=== PATIENT | male | born 1935 | race Caucasian/White ===

== ENCOUNTER 2017-03-28 20:29 | Emergency (ER) | payer MEDICARE, BC ==
[2017-03-28] MEDS ORDERED: HYDROmorphone 1 MG/ML Syringe IVPUSH ONE (20:53)
[2017-03-28] MEDS ORDERED: Sodium Chloride 0.9% 10 ML Syringe FLUSH PRN (20:53)
[2017-03-28] MEDS ORDERED: Diazepam 5 MG Tab PO ONE (20:53)
--- NOTE | 2017-03-28 20:59 | EDM.PDOC ---
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 He has had thorough workups for this including [address] [facility]. He's been on chronic Mirapex and clonazepam, and recently started oxycodone which had been helping but he was recently diagnosed with influenza and tonight he is having a particularly bad night with the recurring spasms especially in the right shoulder. No new trauma, no fevers or chills, no nausea or vomiting. He admits he does not have a whole day where he goes by without at least some spasms. They feel like an electric shock. Onset: Unknown/Unsure (Symptoms have been chronic for years) Quality: Reports: Sharp Severity: Moderate Associated Symptoms: Reports: No Other Symptoms Left Arm Pain Score (Numeric/FACES): 8 - Related Data Allergies Allergy/AdvReac Type Severity Reaction Status Date / Time nifedipine [From Procardia] Allergy Irritabilit Verified 03/28/17 20:48 y Sulfa (Sulfonamide Allergy Irritabilit Verified 03/28/17 20:48 Antibiotics) y Home Meds: Home Meds Acetaminophen [Tylenol] 325 mg PO Q4H PRN 05/20/13 [History] Aspirin [Children's Aspirin] 81 mg PO DAILY 09/11/13 [History] Carvedilol [Coreg] 50 mg PO BID 09/11/13 [History] Furosemide [Lasix] 40 mg PO DAILY 09/11/13 [History] Melatonin 5 mg PO BEDTIME 09/11/13 [History] Pramipexole [Mirapex] 0.5 mg PO BID 09/11/13 [History] Saw [place] Fruit [Saw [place]] 450 mg PO DAILY 09/11/13 [History] Sildenafil [Viagra] 100 mg PO DAILY PRN 09/11/13 [History] Ubidecarenone [Coenzyme Q10] 100 gm MC DAILY 09/11/13 [History] Warfarin [Coumadin] 7.5 mg PO DAILY 09/11/13 [History] oxyCODONE HCl [Oxycontin] 10 mg PO Q4HR PRN 09/11/13 [History] Calcium Citrate/Vitamin D3 [Calcium Citrate + D] 1 each PO DAILY 03/28/17 [ History] Folic Acid 1 mg PO DAILY 03/28/17 [History] Lisinopril [Zestril] 2.5 mg PO DAILY 03/28/17 [History] Methotrexate 12.5 mg PO ASDIRECTED 03/28/17 [History] Simvastatin 20 mg PO BEDTIME 03/28/17 [History] clonazePAM [Klonopin] 1 mg PO BEDTIME 03/28/17 [History] ED ROS GENERAL - Review of Systems Review Of Systems: See Below Constitutional: Denies: Fever, Chills Respiratory: Reports: Cough (Recent influenza diagnosis but improving) GI/Abdominal: Denies: Nausea, Vomiting Skin: Reports: No Symptoms Neurological: Denies: Headache ED EXAM, NEURO - Physical Exam Exam: See Below Exam Limited By: No Limitations General Appearance: Alert, Mild Distress (Patient appears comfortable between episodes but every 30 seconds to 60 seconds he has a sudden brief spasm and pain to the right shoulder causing a muscle contraction) Respiratory/Chest: No Respiratory Distress Neurological: Alert, Oriented x 3 Psychiatric: Flat Affect Skin Exam: Warm, Dry Course - Vital Signs Last Recorded V/S: Last Vital Signs Temp 99.0 F 03/28/17 20:38 Pulse 64 03/28/17 20:38 Resp 12 03/28/17 20:38 BP 140/60 03/28/17 20:38 Pulse Ox 94 L 03/28/17 20:38 - Orders/Labs/Meds Orders: Active Orders 24 hr Category Date Time Status Saline Lock Insert [OM.PC] Routine Oth 03/28/17 20:53 Ordered Meds: Medications Discontinued Medications Generic Name Dose Route Start Last Admin Trade Name Freq PRN Reason Stop Dose Admin Diazepam 10 mg 03/28/17 20:53 03/28/17 21:01 Valium. PO 03/28/17 20:54 10 mg ONETIME ONE Administration Hydromorphone HCl 1 mg 03/28/17 20:53 03/28/17 21:04 Dilaudid IVPUSH 03/28/17 20:54 1 mg ONETIME ONE Administration Sodium Chloride 10 ml 03/28/17 20:53 03/28/17 21:04 Saline Flush FLUSH 10 ml ASDIRECTED PRN Administration Keep Vein Open - Re-Assessments/Exams Free Text/Narrative Re-Assessment/Exam: 03/28/17 20:57 An IV was started and the patient was given 1 mg of IV Dilaudid, and 10 mg of oral Valium to take when he gets home. His main goal for coming into the emergency room was to get some relief so he could sleep. Departure - Departure Time of Disposition: 21:49 Disposition: Home, Self-Care 01 Condition: Fair Clinical Impression: Neuropathy, Muscle spasm of right shoulder - Discharge Information Instructions: Neuropathic Pain Referrals: Aung Tsang MD [Primary Care Provider] - Forms: ED Department Discharge Care Plan Goals: Continue your current medications, and discuss Lyrica as a possible treatment with your regular physicians.. Recheck tomorrow if not improving satisfactorily. - My Orders Last 24 Hours: My Active Orders 03/28/17 20:53 Saline Lock Insert [OM.PC] Routine - Assessment/Plan Last 24 Hours: My Active Orders 03/28/17 20:53 Saline Lock Insert [OM.PC] Routine
== END 2017-03-28 21:28 | disposition home or self-care (01) ==
LOC: JP.ED 20:29
DX: M62.838 Other muscle spasm (principal); G62.9 Polyneuropathy, unspecified; Z88.2 Allergy status to sulfonamides; Z88.8 Allergy status to other drugs, medicaments and biological substances; Z79.82 Long term (current) use of aspirin; Z79.899 Other long term (current) drug therapy; Z79.01 Long term (current) use of anticoagulants
CPT/HCPCS: 96374; 99284; A9270; J1170; J7050; 99283

== ENCOUNTER 2017-04-05 09:37 | Emergency (ER) | payer MEDICARE, BC ==
[2017-04-05] MEDS ORDERED: HYDROmorphone 1 MG/ML Syringe IVPUSH ONE (10:58)
[2017-04-05] MEDS ORDERED: Sodium Chloride 0.9% 10 ML Syringe FLUSH PRN (10:58)
--- NOTE | 2017-04-05 11:05 | EDM.PDOC ---
ED HPI GENERAL MEDICAL PROBLEM - General Chief Complaint: General Stated Complaint: PAIN IN RIGHT LEG Time Seen by Provider: 04/05/17 10:45 Source of Information: Reports: Patient, Family History Limitations: Reports: No Limitations - History of Present Illness INITIAL COMMENTS - FREE TEXT/NARRATIVE: 81-year-old male with chronic intense spasms of the extremities, I saw him 2 weeks ago and he responded well to IV Dilaudid and IV Valium. He has an appointment with neurological movement disorders at [facility]. The appointment is next month. He did not get any sleep last night because the spasm was persistent and recurring in the right leg and some in the right arm. Onset: Other (Symptoms have been ongoing for years) Severity: Moderate Associated Symptoms: Reports: Other (Patient is becoming very fatigued because of the prolonged symptoms and lack of sleep) - Related Data Allergies Allergy/AdvReac Type Severity Reaction Status Date / Time nifedipine [From Procardia] Allergy Irritabilit Verified 03/28/17 20:48 y Sulfa (Sulfonamide Allergy Irritabilit Verified 03/28/17 20:48 Antibiotics) y Home Meds: Home Meds Acetaminophen [Tylenol] 325 mg PO Q4H PRN 05/20/13 [History] Aspirin [Children's Aspirin] 81 mg PO DAILY 09/11/13 [History] Carvedilol [Coreg] 50 mg PO BID 09/11/13 [History] Furosemide [Lasix] 40 mg PO DAILY 09/11/13 [History] Melatonin 5 mg PO BEDTIME 09/11/13 [History] Pramipexole [Mirapex] 0.5 mg PO BID 09/11/13 [History] Saw [place] Fruit [Saw [place]] 450 mg PO DAILY 09/11/13 [History] Sildenafil [Viagra] 100 mg PO DAILY PRN 09/11/13 [History] Ubidecarenone [Coenzyme Q10] 100 gm MC DAILY 09/11/13 [History] Warfarin [Coumadin] 7.5 mg PO DAILY 09/11/13 [History] oxyCODONE HCl [Oxycontin] 10 mg PO Q4HR PRN 09/11/13 [History] Calcium Citrate/Vitamin D3 [Calcium Citrate + D] 1 each PO DAILY 03/28/17 [ History] Folic Acid 1 mg PO DAILY 03/28/17 [History] Lisinopril [Zestril] 2.5 mg PO DAILY 03/28/17 [History] Methotrexate 12.5 mg PO ASDIRECTED 03/28/17 [History] Simvastatin 20 mg PO BEDTIME 03/28/17 [History] clonazePAM [Klonopin] 1 mg PO BEDTIME 03/28/17 [History] Past Medical History Cardiovascular History: Reports: Hypertension, [place] Musculoskeletal History: Reports: Osteoarthritis, Other (See Below) Other Musculoskeletal History: c/o spasm R knee L elbow Neurological History: Reports: Other (See Below) Other Neuro History: spasms legs Oncologic (Cancer) History: Reports: Other (See Below) Other Oncologic History: hx skin ca - Past Surgical History Cardiovascular Surgical History: Reports: Pacer Social & Family History - Tobacco Use Smoking Status *Q: Never Smoker Years of Tobacco use: 50 Packs/Tins Daily: 2 Used Tobacco, but Quit: No Second Hand Smoke Exposure: No - Caffeine Use Caffeine Use: Reports: Coffee - Alcohol Use Days Per Week of Alcohol Use: 1 Number of Drinks Per Day: 7 Total Drinks Per Week: 7 - Recreational Drug Use Recreational Drug Use: No ED ROS GENERAL - Review of Systems Review Of Systems: See Below Constitutional: Reports: Malaise. Denies: Fever, Chills HEENT: Reports: No Symptoms Respiratory: Denies: Shortness of Breath, Cough Cardiovascular: Denies: Chest Pain GI/Abdominal: Denies: Nausea, Vomiting Skin: Denies: Rash ED EXAM, GENERAL - Physical Exam Exam: See Below Exam Limited By: No Limitations General Appearance: Alert, Mild Distress (Patient is very uncomfortable from the frequent recurring spasms) Respiratory/Chest: No Respiratory Distress Cardiovascular: Regular Rate, Rhythm Extremities: Non-Tender (No tenderness to palpation of the shoulder or leg, but recurring spasms are occurring) Neurological: Alert, Oriented Course - Vital Signs Last Recorded V/S: Last Vital Signs Temp 96.8 F 04/05/17 10:17 Pulse 91 04/05/17 10:17 Resp 18 04/05/17 10:17 BP 137/59 L 04/05/17 10:17 Pulse Ox 95 04/05/17 09:55 - Orders/Labs/Meds Orders: Active Orders 24 hr Category Date Time Status Saline Lock Insert [OM.PC] Routine Oth 04/05/17 10:58 Ordered Meds: Medications Discontinued Medications Generic Name Dose Route Start Last Admin Trade Name Jt PRN Reason Stop Dose Admin Diazepam 10 mg 04/05/17 10:58 04/05/17 11:29 Valium IVPUSH 04/05/17 10:59 Not Given ONETIME ONE Hydromorphone HCl 1 mg 04/05/17 10:58 04/05/17 11:20 Dilaudid IVPUSH 04/05/17 10:59 1 mg ONETIME ONE Administration Lorazepam Confirm 04/05/17 11:27 04/05/17 11:38 Ativan Administered 04/05/17 11:28 Not Given Dose 2 mg .ROUTE .STK-MED ONE Lorazepam 1 mg 04/05/17 11:34 04/05/17 11:37 Ativan IVPUSH 04/05/17 11:35 1 mg ONETIME ONE Administration Sodium Chloride 10 ml 04/05/17 10:58 Saline Flush FLUSH ASDIRECTED PRN Keep Vein Open - Re-Assessments/Exams Free Text/Narrative Re-Assessment/Exam: 04/05/17 11:04 Saline lock was started and the patient again was given 1 mg of Dilaudid and 10 mg of IV Valium. He was given a prescription for oral Valium 10 mg #30 to use instead of the clonazepam. 04/05/17 11:35 No IV Valium was available so the patient was given 1 mg of Ativan IV Departure - Departure Time of Disposition: 11:40 Disposition: Home, Self-Care 01 Condition: Good Clinical Impression: Muscle spasm of right shoulder, Muscle spasm of right lower extremity - Discharge Information Instructions: Muscle Cramps and Spasms, [id number] Referrals: Aung Tsang MD [Primary Care Provider] - Forms: ED Department Discharge Care Plan Goals: Continue your current medications except take Valium instead of clonazepam. Return if worsening despite medication change. - My Orders Last 24 Hours: My Active Orders 04/05/17 10:58 Saline Lock Insert [OM.PC] Routine - Assessment/Plan Last 24 Hours: My Active Orders 04/05/17 10:58 Saline Lock Insert [OM.PC] Routine
[2017-04-05] MEDS ORDERED: LORazepam 2 MG/ML MDV ONE (11:27)
[2017-04-05] MEDS ORDERED: LORazepam 2 MG/ML MDV IVPUSH ONE (11:34)
== END 2017-04-05 11:42 | disposition home or self-care (01) ==
LOC: JP.ED 09:37
DX: M62.838 Other muscle spasm (principal); I10 Essential (primary) hypertension; Z79.01 Long term (current) use of anticoagulants; Z79.899 Other long term (current) drug therapy; Z79.82 Long term (current) use of aspirin; Z88.2 Allergy status to sulfonamides; Z88.8 Allergy status to other drugs, medicaments and biological substances
CPT/HCPCS: 96374; 96375; 99283; J1170; J2060

== ENCOUNTER 2017-04-06 02:03 | Emergency (ER) | payer MEDICARE, BC ==
[2017-04-06] MEDS ORDERED: HYDROmorphone 1 MG/ML Syringe IM ONE (03:04)
--- NOTE | 2017-04-06 03:10 | EDM.PDOC ---
ED HPI GENERAL MEDICAL PROBLEM - General Chief Complaint: Neurological Problem Stated Complaint: BODY PAINS Time Seen by Provider: 04/06/17 02:50 Source of Information: Reports: Patient, Family, Old Records History Limitations: Reports: No Limitations - History of Present Illness INITIAL COMMENTS - FREE TEXT/NARRATIVE: 81 yo male presents with the same problem has had ongoing for a long time, this problem of just jerking/electrical shock-like feelings in his extremities has been worsening over the past couple of weeks. He was last here yesterday morning and got some transient relief with 1 mg IV Dilaudid with some IV Diazepam, although not as much relief as he received the previous visit with the same dose. He has an appt with his primary this coming Monday and an appt at the [facility] next month with a specialist there in muscular disorders. 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.) Associated Symptoms: Reports: No Other Symptoms Treatments CONICAL MIXER: Reports: Other (see below) (home meds) - Related Data Allergies Allergy/AdvReac Type Severity Reaction Status Date / Time nifedipine [From Procardia] Allergy Irritabilit Verified 03/28/17 20:48 y Sulfa (Sulfonamide Allergy Irritabilit Verified 03/28/17 20:48 Antibiotics) y Home Meds: Home Meds Acetaminophen [Tylenol] 325 mg PO Q4H PRN 05/20/13 [History] Aspirin [Children's Aspirin] 81 mg PO DAILY 09/11/13 [History] Carvedilol [Coreg] 50 mg PO BID 09/11/13 [History] Melatonin 5 mg PO BEDTIME 09/11/13 [History] Pramipexole [Mirapex] 0.5 mg PO BID 09/11/13 [History] Saw [place] Fruit [Saw [place]] 450 mg PO DAILY 09/11/13 [History] Ubidecarenone [Coenzyme Q10] 100 gm MC DAILY 07/16/14 [History] Warfarin [Coumadin] 7.5 mg PO DAILY 09/11/13 [History] oxyCODONE HCl [Oxycontin] 10 mg PO Q4HR PRN 09/11/13 [History] Calcium Citrate/Vitamin D3 [Calcium Citrate + D] 1 each PO DAILY 03/28/17 [ History] Folic Acid 1 mg PO DAILY 03/28/17 [History] Lisinopril [Zestril] 2.5 mg PO DAILY 03/28/17 [History] Methotrexate 12.5 mg PO ASDIRECTED 03/28/17 [History] clonazePAM [Klonopin] 1 mg PO BEDTIME 03/28/17 [History] Diazepam [Valium] 10 mg PO Q4H 04/06/17 [History] Past Medical History HEENT History: Reports: Impaired Vision Cardiovascular History: Reports: Heart Failure, Hypertension, [place] Musculoskeletal History: Reports: Osteoarthritis, Other (See Below) Other Musculoskeletal History: c/o spasm R knee L elbow Neurological History: Reports: CVA, Other (See Below) Other Neuro History: spasms legs Psychiatric History: Reports: Depression Oncologic (Cancer) History: Reports: Other (See Below) Other Oncologic History: hx skin ca - Infectious Disease History Infectious Disease History: Reports: Chicken Pox, Measles, Mumps - Past Surgical History Cardiovascular Surgical History: Reports: Pacer GI Surgical History: Reports: Hernia, Inguinal Musculoskeletal Surgical History: Reports: Knee Replacement Social & Family History - Family History Family Medical History: Noncontributory - Tobacco Use Smoking Status *Q: Current Every Day Smoker Years of Tobacco use: 60 Packs/Tins Daily: 1 Used Tobacco, but Quit: No Second Hand Smoke Exposure: No - Caffeine Use Caffeine Use: Reports: Coffee - Alcohol Use Days Per Week of Alcohol Use: 7 Number of Drinks Per Day: 1 Total Drinks Per Week: 7 - Recreational Drug Use Recreational Drug Use: No ED ROS GENERAL - Review of Systems Review Of Systems: See Below Constitutional: Reports: No Symptoms HEENT: Reports: No Symptoms Respiratory: Reports: No Symptoms Cardiovascular: Reports: No Symptoms GI/Abdominal: Reports: No Symptoms : Reports: No Symptoms Musculoskeletal: Reports: Arm Pain, Leg Pain Skin: Reports: No Symptoms Neurological: Reports: Other (shooting pains intermittently in varying extremities) ED EXAM, NEURO - Physical Exam Exam: See Below Exam Limited By: No Limitations General Appearance: Alert, WD/WN, Moderate Distress Eye Exam: Bilateral Eye: Normal Inspection Ears: Normal External Exam, Normal Canal, Hearing Grossly Normal, Normal TMs Nose: Normal Inspection, Normal Mucosa, No Blood Throat/Mouth: Normal Inspection, Normal Lips, Normal Oropharynx, Normal Voice, No Airway Compromise Head Exam: Atraumatic, Normocephalic Neck: Normal Inspection Respiratory/Chest: No Respiratory Distress, Lungs Clear, Normal Breath Sounds, No Accessory Muscle Use Cardiovascular: Regular Rate, Rhythm GI/Abdominal: Soft, Non-Tender Neurological: Alert, Normal Mood/Affect, CN II-XII Intact, No Motor/Sensory Deficits, Oriented x 3, Other (intermittent severe twitching, approx every 5-10 seconds.) Back Exam: Normal Inspection Extremities: Normal Inspection, Normal Range of Motion, Non-Tender Psychiatric: Normal Affect, Normal Mood Skin Exam: Warm, Dry, Intact, Normal Color, No Rash Course - Vital Signs Last Recorded V/S: Last Vital Signs Temp 35.6 C 04/06/17 02:14 Pulse 96 04/06/17 02:14 Resp 18 04/06/17 02:14 BP 165/87 H 04/06/17 02:14 Pulse Ox 94 L 04/06/17 02:14 - Orders/Labs/Meds Orders: Active Orders 24 hr Category Date Time Status HYDROmorphone [Dilaudid] Med 04/06/17 03:04 Once 1.5 mg IM ONETIME ONE Departure - Departure Time of Disposition: 03:20 Disposition: Home, Self-Care 01 Condition: Fair Clinical Impression: Paroxysmal nerve pain - Discharge Information Referrals: Aung Tsang MD [Primary Care Provider] - - My Orders Last 24 Hours: My Active Orders 04/06/17 03:04 HYDROmorphone [Dilaudid] 1.5 mg IM ONETIME ONE - Assessment/Plan Last 24 Hours: My Active Orders 04/06/17 03:04 HYDROmorphone [Dilaudid] 1.5 mg IM ONETIME ONE
== END 2017-04-06 03:29 | disposition home or self-care (01) ==
LOC: JP.ED 02:03
DX: G58.8 Other specified mononeuropathies (principal); F17.210 Nicotine dependence, cigarettes, uncomplicated; I11.0 Hypertensive heart disease with heart failure; I50.9 Heart failure, unspecified; F32.9 Major depressive disorder, single episode, unspecified; Z79.82 Long term (current) use of aspirin; Z79.01 Long term (current) use of anticoagulants; Z79.899 Other long term (current) drug therapy; Z88.2 Allergy status to sulfonamides; Z88.8 Allergy status to other drugs, medicaments and biological substances
CPT/HCPCS: 96372; 99283; J1170; 99282

== ENCOUNTER 2017-04-24 03:59 | Emergency (ER) | payer MEDICARE, BC ==
[2017-04-24] MEDS ORDERED: HYDROmorphone 1 MG/ML Syringe IM ONE (04:51)
[2017-04-24] MEDS ORDERED: Baclofen 10 MG Tab PO ONE (05:03)
[2017-04-24] MEDS ORDERED: LORazepam 2 MG/ML SDV IM ONE (05:29)
[2017-04-24] MEDS ORDERED: Haloperidol Lactate 5 MG/ML SDV IM ONE (05:29)
--- NOTE | 2017-04-24 05:48 | EDM.PDOC ---
<Gin Sotomayor - Last Filed: 04/24/17 12:37> ED HPI GENERAL MEDICAL PROBLEM - General Chief Complaint: General Stated Complaint: UNCONTROLLABLE MOVEMENTS Time Seen by Provider: 04/24/17 04:34 - Related Data Allergies Allergy/AdvReac Type Severity Reaction Status Date / Time amoxicillin [From Augmentin] Allergy Other Verified 04/24/17 04:11 clavulanic acid Allergy Other Verified 04/24/17 04:11 [From Augmentin] nifedipine [From Procardia] Allergy Irritabilit Verified 04/24/17 04:11 y Sulfa (Sulfonamide Allergy Irritabilit Verified 04/24/17 04:11 Antibiotics) y Astelin Nasal Ripon Allergy Other Uncoded 04/11/17 10:28 Home Meds: Home Meds Acetaminophen [Tylenol] 325 mg PO Q4H PRN 05/20/13 [History] Aspirin [Children's Aspirin] 81 mg PO DAILY 09/11/13 [History] Carvedilol [Coreg] 50 mg PO BID 09/11/13 [History] Melatonin 5 mg PO BEDTIME 09/11/13 [History] Pramipexole [Mirapex] 0.5 mg PO BID 09/11/13 [History] Saw Badger Fruit [Saw Badger] 450 mg PO DAILY 09/11/13 [History] Ubidecarenone [Coenzyme Q10] 100 gm MC DAILY 09/11/13 [History] Warfarin [Coumadin] 7.5 mg PO DAILY 09/11/13 [History] oxyCODONE HCl [Oxycontin] 10 mg PO Q4HR PRN 09/11/13 [History] Calcium Citrate/Vitamin D3 [Calcium Citrate + D] 1 each PO DAILY 03/28/17 [ History] Folic Acid 1 mg PO DAILY 03/28/17 [History] Lisinopril [Zestril] 2.5 mg PO DAILY 03/28/17 [History] Methotrexate 12.5 mg PO ASDIRECTED 03/28/17 [History] clonazePAM [Klonopin] 1 mg PO BEDTIME 03/28/17 [History] Diazepam [Valium] 10 mg PO Q4H PRN 04/06/17 [History] Furosemide [Lasix] 40 mg PO DAILY 04/24/17 [History] Course - Vital Signs Last Recorded V/S: Last Vital Signs Temp 95.7 F 04/24/17 04:16 Pulse 62 04/24/17 06:01 Resp 20 04/24/17 06:01 BP 179/77 H 04/24/17 06:01 Pulse Ox 98 04/24/17 04:16 - Orders/Labs/Meds Orders: Active Orders 24 hr Category Date Time Status Peripheral IV Care [RC] . DIRECTED Care 04/24/17 06:02 Active Peripheral IV Insertion Adult [OM.PC] Urgent Oth 04/24/17 06:02 Ordered Labs: Laboratory Tests 04/24/17 04/24/17 Range/Units 06:00 06:00 WBC 5.8 (4.5-11.0) K/uL RBC 4.18 L (4.30-5.90) M/uL Hgb 13.2 (12.0-15.0) g/dL Hct 39.3 L (40.0-54.0) % MCV 94 (80-98) fL MCH 32 H (27-31) pg MCHC 34 (32-36) % Plt Count 203 (150-400) K/uL Neut % (Auto) 73 H (36-66) % Lymph % (Auto) 16 L (24-44) % Stoddard % (Auto) 9 H (2-6) % Eos % (Auto) 1 L (2-4) % Baso % (Auto) 1 (0-1) % Sodium 136 L (140-148) mmol/L Potassium 4.2 (3.6-5.2) mmol/L Chloride 101 (100-108) mmol/L Carbon Dioxide 27 (21-32) mmol/L Anion Gap 12.2 (5.0-14.0) mmol/L BUN 25 H (7-18) mg/dL Creatinine 1.0 (0.8-1.3) mg/dL Est Cr Clr Drug Dosing 57.79 mL/min Estimated GFR (MDRD) > 60 (>60) Glucose 118 H (74-106) mg/dL Calcium 8.9 (8.5-10.1) mg/dL Total Bilirubin 0.8 (0.2-1.0) mg/dL AST 21 (15-37) U/L ALT 25 (12-78) U/L Alkaline Phosphatase 164 H (46-116) U/L Total Protein 7.2 (6.4-8.2) g/dL Albumin 3.6 (3.4-5.0) g/dL Globulin 3.6 H (2.3-3.5) g/dL Albumin/Globulin Ratio 1.0 L (1.2-2.2) Meds: Medications Discontinued Medications Generic Name Dose Route Start Last Admin Trade Name Freq PRN Reason Stop Dose Admin Baclofen 10 mg 04/24/17 05:03 04/24/17 05:07 Lioresal PO 04/24/17 05:04 10 mg ONETIME ONE Administration Haloperidol Lactate 5 mg 04/24/17 05:29 04/24/17 05:36 Haldol IM 04/24/17 05:30 5 mg ONETIME ONE Administration Hydromorphone HCl 1 mg 04/24/17 04:51 04/24/17 04:55 Dilaudid IM 04/24/17 04:52 1 mg ONETIME ONE Administration Hydromorphone HCl 1 mg 04/24/17 09:58 04/24/17 10:06 Dilaudid IVPUSH 04/24/17 09:59 1 mg ONETIME ONE Administration Sodium Chloride 1,000 mls @ 500 mls/hr 04/24/17 06:30 Normal Saline IV ASDIRECTED DANIEL Magnesium Sulfate 2 gm/ Premix 50 mls @ 12.5 mls/hr 04/24/17 07:13 04/24/17 07:33 IV 04/24/17 11:12 12.5 mls/hr ONETIME ONE Administration Levetiracetam 500 mg 04/24/17 12:12 04/24/17 13:07 Keppra PO 04/24/17 12:13 500 mg BID ONE Administration Lorazepam 1 mg 04/24/17 05:29 04/24/17 05:36 Ativan IM 04/24/17 05:30 1 mg ONETIME ONE Administration Lorazepam 1 mg 04/24/17 07:43 04/24/17 07:47 Ativan PO 04/24/17 07:44 1 mg ONETIME ONE Administration Phenytoin Sodium 250 mg 04/24/17 06:25 04/24/17 06:32 Phenytoin IVPUSH 04/24/17 06:26 250 mg ONETIME ONE Administration Sodium Chloride 10 ml 04/24/17 06:02 04/24/17 06:09 Saline Flush FLUSH 10 ml ASDIRECTED PRN Administration Keep Vein Open - Re-Assessments/Exams Free Text/Narrative Re-Assessment/Exam: 04/24/17 12:37 His neurologist was called and was not available today. I did talk to the neurologist educational assistant and he had no further suggestions. Because of the distress that he was having admissions at the [facility] was called and they did accept him as a observation and will have the pain clinic see him. They wre to call back when a room came available today. The family is in the process of deciding if he will go by ambulance or if they will try to take him in the car. Departure - Departure Disposition: DC/Tfer to Acute Hospital 02 Condition: Fair Clinical Impression: Intractable neuropathic pain of right knee - Discharge Information Referrals: Aung Tsang MD [Primary Care Provider] - Forms: ED Department Discharge - My Orders Last 24 Hours: My Active Orders 04/24/17 06:02 Peripheral IV Care [RC] . DIRECTED Peripheral IV Insertion Adult [OM.PC] Urgent - Assessment/Plan Last 24 Hours: My Active Orders 04/24/17 06:02 Peripheral IV Care [RC] . DIRECTED Peripheral IV Insertion Adult [OM.PC] Urgent <OfficerJeremiah - Last Filed: 04/25/17 06:57> ED HPI GENERAL MEDICAL PROBLEM - General Source of Information: Reports: Patient, Family, Old Records, RN Notes Reviewed History Limitations: Reports: No Limitations - History of Present Illness INITIAL COMMENTS - FREE TEXT/NARRATIVE: 81-year-old gentleman presents emergency department today complaint of abnormal muscle movements, he has a long history of undiagnosed myoclonic spasticity he describes it as electrical shocks that shoot through his body family right side upper and lower extremities, he he has tried a variety of medications without any significant relief he has had Dilaudid IM injections in the past which did provide some relief, he reports the emergency department this morning for help as he has not been able to get any rest Past Medical History HEENT History: Reports: Impaired Vision Cardiovascular History: Reports: Heart Failure, Hypertension, ND Musculoskeletal History: Reports: Osteoarthritis, Other (See Below) Other Musculoskeletal History: c/o spasm R knee L elbow Neurological History: Reports: CVA, Other (See Below) Other Neuro History: spasms legs Psychiatric History: Reports: Depression Oncologic (Cancer) History: Reports: Other (See Below) Other Oncologic History: hx skin ca - Infectious Disease History Infectious Disease History: Reports: Chicken Pox, Influenza, Measles, Mumps - Past Surgical History Cardiovascular Surgical History: Reports: Pacer GI Surgical History: Reports: Hernia, Inguinal Musculoskeletal Surgical History: Reports: Knee Replacement Social & Family History - Family History Family Medical History: Noncontributory - Tobacco Use Smoking Status *Q: Current Every Day Smoker Years of Tobacco use: 4 Packs/Tins Daily: 1 Used Tobacco, but Quit: No Second Hand Smoke Exposure: No - Caffeine Use Caffeine Use: Reports: Coffee, Tea - Alcohol Use Days Per Week of Alcohol Use: 7 Number of Drinks Per Day: 1 Total Drinks Per Week: 7 - Recreational Drug Use Recreational Drug Use: No ED ROS GENERAL - Review of Systems Review Of Systems: See Below Constitutional: Reports: No Symptoms HEENT: Reports: No Symptoms Respiratory: Reports: No Symptoms Cardiovascular: Reports: No Symptoms GI/Abdominal: Reports: No Symptoms : Reports: No Symptoms Musculoskeletal: Reports: Muscle Pain, Muscle Stiffness Skin: Reports: No Symptoms Neurological: Reports: No Symptoms ED EXAM, GENERAL - Physical Exam Exam: See Below Exam Limited By: No Limitations General Appearance: Alert, Mild Distress Respiratory/Chest: No Respiratory Distress Extremities: Limited Range of Motion, Other (Muscle spasms, and right side upper and lower extremities) Course - Orders/Labs/Meds Orders: Active Orders 24 hr Category Date Time Status Peripheral IV Care [RC] . DIRECTED Care 04/24/17 06:02 Active Peripheral IV Insertion Adult [OM.PC] Urgent Oth 04/24/17 06:02 Ordered Labs: Laboratory Tests 04/24/17 04/24/17 Range/Units 06:00 06:00 WBC 5.8 (4.5-11.0) K/uL RBC 4.18 L (4.30-5.90) M/uL Hgb 13.2 (12.0-15.0) g/dL Hct 39.3 L (40.0-54.0) % MCV 94 (80-98) fL MCH 32 H (27-31) pg MCHC 34 (32-36) % Plt Count 203 (150-400) K/uL Neut % (Auto) 73 H (36-66) % Lymph % (Auto) 16 L (24-44) % Stoddard % (Auto) 9 H (2-6) % Eos % (Auto) 1 L (2-4) % Baso % (Auto) 1 (0-1) % Sodium 136 L (140-148) mmol/L Potassium 4.2 (3.6-5.2) mmol/L Chloride 101 (100-108) mmol/L Carbon Dioxide 27 (21-32) mmol/L Anion Gap 12.2 (5.0-14.0) mmol/L BUN 25 H (7-18) mg/dL Creatinine 1.0 (0.8-1.3) mg/dL Est Cr Clr Drug Dosing 57.79 mL/min Estimated GFR (MDRD) > 60 (>60) Glucose 118 H (74-106) mg/dL Calcium 8.9 (8.5-10.1) mg/dL Total Bilirubin 0.8 (0.2-1.0) mg/dL AST 21 (15-37) U/L ALT 25 (12-78) U/L Alkaline Phosphatase 164 H (46-116) U/L Total Protein 7.2 (6.4-8.2) g/dL Albumin 3.6 (3.4-5.0) g/dL Globulin 3.6 H (2.3-3.5) g/dL Albumin/Globulin Ratio 1.0 L (1.2-2.2) Departure - Departure Time of Disposition: 06:57 - My Orders Last 24 Hours: My Active Orders 04/24/17 06:02 Peripheral IV Care [RC] . DIRECTED Peripheral IV Insertion Adult [OM.PC] Urgent - Assessment/Plan Last 24 Hours: My Active Orders 04/24/17 06:02 Peripheral IV Care [RC] . DIRECTED Peripheral IV Insertion Adult [OM.PC] Urgent
[2017-04-24] MEDS ORDERED: Sodium Chloride 0.9% 10 ML Syringe FLUSH PRN (06:02)
[2017-04-24] MEDS ORDERED: Phenytoin 250 MG/5 ML SDV IVPUSH ONE (06:25)
[2017-04-24] MEDS ORDERED: Sodium Chloride 0.9% 1,000 ML IV SCH (06:30)
[2017-04-24] MEDS ORDERED: Magnesium Sulfate/Water 2 GM in Premix Bag 1 BAG IV ONE (07:13)
[2017-04-24] MEDS ORDERED: LORazepam 1 MG Tab PO ONE (07:43)
[2017-04-24] MEDS ORDERED: HYDROmorphone 1 MG/ML Syringe IVPUSH ONE (09:58)
[2017-04-24] MEDS ORDERED: levETIRAcetam 250 MG Tab PO ONE (12:12)
--- NOTE | 2017-07-20 10:41 | LETTER ---
07/20/2017 [facility] [address] [place], [place] [id number] RE: ALTA WINSTON : 1935 To whom it May concern: Alta Winston is an 82-year-old gentleman who was seen in the emergency room on 04/24/2017, at which time, he was having severe muscle movements and spasm on the right side, upper and lower extremities, but far more marked in his right lower extremity. He was very uncomfortable. He has not been able to sleep for a number of nights. In the past, infrequently he has come in and had a Dilaudid injection which has helped him and allowed him to sleep. The patient has recently made a contact to Neurology at the [facility] and was set up for followup appointments. He had some initial workup and they were waiting the results of those laboratory tests and other testing that they had done. The patient had gone so many nights without sleep. He was very sleep deprived, somewhat agitated with this whole situation. A contact was made with Neurology in [place], which is our closest neurologist, and after discussing the case with neurologist communications associate, the comment was made that he would best to go back to the [facility] since this was complicated and difficult and since he had initially started a workup at the [facility]. The recommendation of the neurologist was that we contact the neurologist that have started the workup at the [facility]. The patient continued to be very uncomfortable in spite of multiple medications to try to relax spasticity and relieve the pain. A contact was made at the [facility] and the neurologist that he had previously seen was not available, but the neurologist communications associate was willing to accept this patient as an inpatient where he could be observed and pain relief could be given. The patient had stable vital signs in the emergency room, although his pressure continued to be somewhat elevated at 179/77 prior to leaving. His pulse was in the 60s. His oxygenation was in the high 90s. He had been given multiple injections to relieve the spasticity, but in spite of that, continued to be hypertensive. It was felt that he could go by road ambulance, but not by car because of how uncomfortable he was. After considerable deliberation with the family, with the understanding that they may need to pay for part of their transportation, a decision was made to do a road ambulance transport. At this point, I think we need to be sure that we understand that [facility] was contacted and did not feel that they wanted to accept this patient, since he had already started at the [facility] and this was somewhat a very difficult and complicated situation. Mr. Winston got as far as [facility] and his blood pressure became totally uncontrollable and he was more and more confused. Because of his vital signs changing and how he appeared, a decision was made at [facility] that he should be airlifted to the [facility]. At that point, he was airlifted and had a several day stay at [facility]. At this point, I feel that there are 2 or 3 factors. First of all, [facility] was contacted and did not totally refuse, but was not very willing to take this patient in transfer. The decision was made for him to go by road ambulance and then the vital signs and what not changed en route and he was switched to air. Please take this information in consideration as we are looking at the payment for his transport. This letter should also go to Medicare and his insurance companies regarding the situation that existed. If you need further information of me, feel free to contact me. Sincerely, /[phone]
--- NOTE | 2017-07-27 13:38 | LETTER ---
07/27/2017 Antonina Winston [address] [place] [address] RE: ALTA WINSTON : 1935 Dear Antonina, You recently called and discussed the possibility of me writing a letter for your , Alta, so that you could appeal the medical billing. That letter has been sent to [facility]. So, you perhaps could contact them regarding this letter of appeal. If you have questions of me, feel free to contact me. Sincerely, /[phone]
== END 2017-04-24 15:01 ==
LOC: JP.ED 03:59
DX: G58.8 Other specified mononeuropathies (principal); I11.0 Hypertensive heart disease with heart failure; I25.2 Old myocardial infarction; I50.9 Heart failure, unspecified; F17.210 Nicotine dependence, cigarettes, uncomplicated; Z88.1 Allergy status to other antibiotic agents; Z88.2 Allergy status to sulfonamides; Z88.8 Allergy status to other drugs, medicaments and biological substances; Z79.82 Long term (current) use of aspirin; Z79.899 Other long term (current) drug therapy
CPT/HCPCS: 36415; 80053; 85025; 96365; 96366; 96372; 96375; 99284; 99285; A9270; J1165; J1170; J1630; J2060; J3475; J7050